=== PATIENT | female | born 1960 | race African-American/Black ===

== ENCOUNTER → 2017-12-05 | Outpatient (CLI) | payer MEDICARE, OTHER ==
[2017-01-06 11:00] VITALS: BP 120/67
[~2017-12-05] MED LIST: HYDR5SUS PO; LEVO750T31 PO; PRED-220 PO; TRIA1TAB3 PO; UMEC1DIS IH
--- NOTE | 2017-12-05 16:05 | KCIC ---
EXAM: Right shoulder sonogram. HISTORY: Palpable lump. TECHNIQUE: Sonographic imaging of the right shoulder at the site of palpable concern was performed. Comparison images of the left shoulder were also obtained. COMPARISON: None. FINDINGS: There is slight asymmetry in the subcutaneous fat overlying the posterior lateral right greater than left shoulder. No lipoma or alternative soft tissue mass or fluid collection is seen. IMPRESSION: Slight asymmetry in subcutaneous fat along the right greater than left shoulders. No suspicious sonographic lesion is seen. Electronically signed by: Lela Gonzalez MD (12/05/2017 4:01 PM) [place] [id number]
== END | disposition home or self-care (01) ==
LOC: KCIC US 15:28
PROVIDERS: ATTEND Family Medicine
DX: R22.31 Localized swelling, mass and lump, right upper limb (principal); N18.2 Chronic kidney disease, stage 2 (mild); Z87.891 Personal history of nicotine dependence; Z90.710 Acquired absence of both cervix and uterus; Z88.2 Allergy status to sulfonamides; Z82.49 Family history of ischemic heart disease and other diseases of the circulatory system
CPT/HCPCS: 76881